=== PATIENT | female | born 1960 | race Caucasian/White ===

== ENCOUNTER 2024-07-30 22:15 | Emergency (ER) | payer OTHER ==
[~2024-07-30] VITALS: Ht 170.2 cm; Wt 105.7 kg
[2024-07-30 22:20] VITALS: BP_SYST 145; PULSE 78; RESP 18; TEMP 97.5; O2SAT 98
[2024-07-30] MEDS ORDERED: NAPR-690 PO (23:55)
[2024-07-30] MEDS ORDERED: MOXI3DRO13 BOTH EYES (23:55)
[2024-07-31] VITALS: BP_SYST 161; PULSE 69; RESP 18; TEMP 98.6; O2SAT 96
== END 2024-07-31 00:10 | disposition home or self-care (01) ==
LOC: SED 22:15
DX: S05.02XA Injury of conjunctiva and corneal abrasion without foreign body, left eye, initial encounter (principal); S05.01XA Injury of conjunctiva and corneal abrasion without foreign body, right eye, initial encounter; Z79.899 Other long term (current) drug therapy; Z79.2 Long term (current) use of antibiotics; X58.XXXA Exposure to other specified factors, initial encounter; Y93.89 Activity, other specified; Y92.89 Other specified places as the place of occurrence of the external cause; Y99.8 Other external cause status
CPT/HCPCS: 99283